=== PATIENT | male | born 1960 | race Hispanic/Latino ===

== ENCOUNTER 2021-01-12 06:02 | Inpatient (IN) | payer OTHER, SELFPAY ==
[2021-01-11 09:18] VITALS: BMI 31.3
[2021-01-12] MEDS ORDERED: Albumin 5% 500 ML ONE (06:41)
[2021-01-12] MEDS ORDERED: Midazolam HCl 2 mg/2 ml Vial ONE (07:13)
[2021-01-12] MEDS ORDERED: Sodium Bicarb 50 MEQ/50 ML Abboject 8.4% SYRINGE ONE (07:26)
[2021-01-12] MEDS ORDERED: PROPOFOL 200 MG/20 ML VIAL ONE (07:26)
[2021-01-12] MEDS ORDERED: Vecuronium 10 MG VIAL ONE (07:26)
[2021-01-12] MEDS ORDERED: Aminocaproic Acid 5 GM/20 ML VIAL ONE (07:26)
[2021-01-12] MEDS ORDERED: Heparin 30,000 units/30 ml VIAL ONE (07:26)
[2021-01-12] MEDS ORDERED: Papaverine 60 MG/2 ML VIAL ONE (07:26)
[2021-01-12] MEDS ORDERED: Lidocaine 2% PF 100 mg/5 ml Syringe ONE (07:26)
[2021-01-12] MEDS ORDERED: Rocuronium Bromide 10 MG/ML (10ML VIAL) ONE (07:26)
[2021-01-12] MEDS ORDERED: Midazolam HCl 5 mg/5 ml Vial ONE (07:34)
[2021-01-12] MEDS ORDERED: Fentanyl 250 MCG/5 ML VIAL ONE (07:34)
[2021-01-12] MEDS ORDERED: PHENYLEPHRINE-NS 100 MCG/ML 10 ML SYRINGE ONE (08:35)
[2021-01-12] MEDS ORDERED: Nitroglycerin 50 MG/250 ML BOT 250 ML ONE (11:01)
[2021-01-12] MEDS ORDERED: Morphine 4 MG/ML VIAL ONE (11:12)
[2021-01-12] MEDS: Lactated Ringer's 1,000 ML IV SCH (11:15)
[2021-01-12] MEDS ORDERED: HYDROcodone/Acetaminophen 5/325 mg Tablet PO PRN (11:24)
[2021-01-12] MEDS ORDERED: Guaifenesin DM 100-10/5 ML UDCUP PO PRN (11:24)
[2021-01-12] MEDS ORDERED: Bisacodyl 5 MG TAB PO PRN (11:24)
[2021-01-12] MEDS ORDERED: niCARdipine 25 MG in Sodium Chloride 0.9% 250 ML 250 ML IVPB PRN (11:24)
[2021-01-12] MEDS ORDERED: hydrALAZINE 20 MG/ML VIAL SLOW IVP PRN (11:24)
[2021-01-12] MEDS ORDERED: Ondansetron PF 4 MG/2 ML Vial IVP PRN (11:24)
[2021-01-12] MEDS ORDERED: Bisacodyl 10 MG SUPP PR PRN (11:24)
[2021-01-12] MEDS ORDERED: Morphine 2 MG/ML VIAL SLOW IVP PRN (11:24)
[2021-01-12] MEDS ORDERED: DOPamine 400 MG/D5W 250 ML 250 ML IVPB PRN (11:24)
[2021-01-12] MEDS ORDERED: Acetaminophen 325 MG TAB PO PRN (11:24)
[2021-01-12] MEDS ORDERED: Potassium Chloride 20 MEQ/100 ML PREMIX BAG IVPB PRN (11:24)
[2021-01-12] MEDS ORDERED: Nitroglycerin 50 MG/250 ML BOT 250 ML IVPB PRN (11:24)
[2021-01-12] MEDS ORDERED: Hetastarch 6% 500 ML 500 ML IVPB PRN (11:24)
[2021-01-12] MEDS ORDERED: Fentanyl 100 MCG/2 ML VIAL SLOW IVP PRN ×2 (11:24)
[2021-01-12] MEDS ORDERED: Post-Op Insulin Drip Protocol IVPB ONE (11:24)
[2021-01-12] MEDS ORDERED: Promethazine HCl 25 MG/ML VIAL IM PRN (11:24)
[2021-01-12] MEDS ORDERED: Norepinephrine 8 MG/0.9% NS 250 ML IVPB PRN (11:24)
[2021-01-12] MEDS ORDERED: Mag-Al 1200 mg/1200 mg/30 ML UDCUP PO PRN (11:24)
[2021-01-12 11:46] LABS: Hemoglobin 13.2 g/dL (14.0-18.0); Mean Corpuscular Hemoglobin 30.9 pg (27.0-31.0); Mean Corpuscular Volume 93.5 fL (78.0-98.0); Mean Platelet Volume 6.8 fL (7.4-10.4); Platelet Count 209 thou/uL (130-400); RBC Distribution Width 11.7 % (11.5-14.5); Red Blood Cell (RBC) Count 4.29 mill/uL (4.70-6.10); White Blood Cell (WBC) Count 24.1 thou/uL (4.8-10.8)
[2021-01-12 11:47] LABS: Actual Bicarbonate (HCO3a) 18.6 mEq/L (22-28); Base Excess (BEa) -6.5 mEq/L (-2.0 to +3.0); CO2 Tension 35.9 mmHg (35.0-45.0); Calcium, Ionized (arterial) 1.08 mmol/L (1.12-1.30); Carboxyhemoglobin (COHb) 0.6 gm% (0.0-3.0); Hemoglobin (Hb) 13.3 g/dL (14.0-18.0); O2 Tension (PaO2), arterial 84.9 mmHg (> 80.0); Potassium - ABG Lab 3.52 mmol/L (3.70-5.30); pH, Arterial 7.33 (7.35-7.45)
[2021-01-12 11:48] LABS: ALV-art Gradient 226.725 mmHg (0-20); Puncture Site Arterial Line
[2021-01-12 11:51] LABS: INR-International Normal Ratio 1.3
[2021-01-12 12:08] LABS: Band 20 % (5-11); Eosinophils 1 % (0-10); Lymphocytes 10 % (21-51); MDiff Complete? YES; Monocytes 4 % (0-10); Neutrophil 64 % (42-75); Platelet Morphology Comment Appears Adequate; RBC Morphology Normal; Reactive Lymphocytes 1 % (0-10)
[2021-01-12 12:13] LABS: Anion Gap 11 mmol/L (10-20); BUN (Urea Nitrogen) 12 mg/dL (8.4-25.7); Calc. Creatinine Clearance 109 mL/min (70-130); Carbon Dioxide 18 mmol/L (23-31); Chloride 112 mmol/L (98-107); Glucose 155 mg/dL (80-115); Potassium 4.4 mmol/L (3.5-5.1); Sodium 137 mmol/L (136-145)
[2021-01-12] MEDS: Ketorolac Tromethamine 30 MG/ML VIAL IVP SCH ×2 (12:15→18:51)
[2021-01-12] MEDS ORDERED: Dextrose 5% in Water 1,000 ML IV PRN (12:15)
[2021-01-12] MEDS ORDERED: Dextrose 50% Abboject 50 ML SYRINGE SLOW IVP PRN (12:15)
[2021-01-12] MEDS ORDERED: HUMULIN R 100 UNITS in Sodium Chloride 0.9% 100 ML IVPB SCH (12:15)
[2021-01-12] MEDS ORDERED: Insulin Regular 300 UNITS/3 ML VIAL SC PRN (12:15)
[2021-01-12 13:35] LABS: Actual Bicarbonate (HCO3a) 18.9 mEq/L (22-28); Base Excess (BEa) -5.3 mEq/L (-2.0 to +3.0); CO2 Tension 33.3 mmHg (35.0-45.0); Carboxyhemoglobin (COHb) 0.9 gm% (0.0-3.0); Hemoglobin (Hb) 14.4 g/dL (14.0-18.0); Potassium - ABG Lab 4.01 mmol/L (3.70-5.30); pH, Arterial 7.37 (7.35-7.45)
[2021-01-12 13:38] LABS: ALV-art Gradient 154.575 mmHg (0-20); Puncture Site LBA
[2021-01-12] MEDS: CEFAZOLIN 2 GM in Premix Bag 1 BAG IVPB SCH ×2 (14:30→22:26)
[2021-01-12 18:06] LABS: Potassium 4.4 mmol/L (3.5-5.1)
[2021-01-12] MEDS: HYDROcodone/Acetaminophen 5/325 mg Tablet PO PRN (20:04)
[2021-01-12] MEDS ORDERED: Famotidine/PF 20 mg/2ml Vial SLOW IVP SCH (21:00)
[2021-01-13] MEDS: Ketorolac Tromethamine 30 MG/ML VIAL IVP SCH ×4 (00:09→17:33)
[2021-01-13 04:54] LABS: #Lymphocytes 2.8 thou/uL (1.20-3.40); #Monocytes 1.3 thou/uL (0.11-0.59); #Neutrophils 12.2 thou/uL (1.40-6.50); %Basophils 0.2 % (0.0-1.0); %Eosinophils 0.1 % (0.0-10.0); %Monocytes 8.2 % (0.0-10.0); %Neutrophils 74.5 % (42.0-75.0); Hemoglobin 11.8 g/dL (14.0-18.0); Mean Corpuscular HGB CONC 33.1 g/dL (32.0-36.0); Mean Corpuscular Hemoglobin 31.1 pg (27.0-31.0); Mean Corpuscular Volume 93.8 fL (78.0-98.0); Mean Platelet Volume 7.1 fL (7.4-10.4); Platelet Count 215 thou/uL (130-400); RBC Distribution Width 11.8 % (11.5-14.5); Red Blood Cell (RBC) Count 3.81 mill/uL (4.70-6.10); White Blood Cell (WBC) Count 16.4 thou/uL (4.8-10.8)
[2021-01-13 05:13] LABS: Anion Gap 8 mmol/L (10-20); BUN (Urea Nitrogen) 15 mg/dL (8.4-25.7); Calc. Creatinine Clearance 105 mL/min (70-130); Calcium 7.9 mg/dL (7.8-10.44); Carbon Dioxide 26 mmol/L (23-31); Chloride 107 mmol/L (98-107); Glucose 113 mg/dL (80-115); Sodium 137 mmol/L (136-145)
[2021-01-13] MEDS: CEFAZOLIN 2 GM in Premix Bag 1 BAG IVPB SCH (05:23)
[2021-01-13] MEDS: HYDROcodone/Acetaminophen 5/325 mg Tablet PO PRN ×3 (05:24→16:15)
[2021-01-13] MEDS: Lactated Ringer's 1,000 ML IV SCH (06:16)
[2021-01-13] MEDS: Metoprolol Tartrate 25 MG TAB PO SCH ×4 (09:34→21:35)
[2021-01-13] MEDS: Aspirin 325 MG TAB PO SCH (09:34)
[2021-01-13] MEDS ORDERED: Guaifenesin DM 100-10/5 ML UDCUP PO PRN (09:36)
[2021-01-13] MEDS ORDERED: Zolpidem Tartrate 5 MG TAB PO PRN (09:36)
[2021-01-13] MEDS ORDERED: diphenhydrAMINE 25 MG CAP PO PRN (09:36)
[2021-01-13] MEDS ORDERED: Mineral Oil ENEMA PR PRN (09:36)
[2021-01-13] MEDS ORDERED: Nitroglycerin 0.4 MG TAB (25 Tab Bottle) SL PRN (09:36)
[2021-01-13] MEDS ORDERED: Furosemide 40 MG/4 ML VIAL ONE (12:13)
[2021-01-13] MEDS ORDERED: Furosemide 20 MG TAB PO SCH (12:45)
[2021-01-13] MEDS: Aspirin 325 mg Enteric Coated Tablet PO SCH (13:35)
[2021-01-13] MEDS: Atorvastatin Calcium 40 MG TAB PO SCH (21:35)
[2021-01-14] MEDS: Ketorolac Tromethamine 30 MG/ML VIAL IVP SCH ×5 (00:19→23:43)
[2021-01-14] MEDS: Aspirin 325 MG TAB PO SCH (09:21)
[2021-01-14] MEDS: Aspirin 325 mg Enteric Coated Tablet PO SCH (09:21)
[2021-01-14] MEDS: Metoprolol Tartrate 25 MG TAB PO SCH ×4 (09:21→23:50)
[2021-01-14] MEDS: Potassium Chloride 10 MEQ TAB PO SCH (09:22)
[2021-01-14] MEDS: Furosemide 20 MG TAB PO SCH (09:23)
[2021-01-14] MEDS: HYDROcodone/Acetaminophen 5/325 mg Tablet PO PRN (16:54)
[2021-01-14] MEDS: Atorvastatin Calcium 40 MG TAB PO SCH (21:13)
[2021-01-15] MEDS: Ketorolac Tromethamine 30 MG/ML VIAL IVP SCH (05:42)
[2021-01-15] MEDS: Metoprolol Tartrate 25 MG TAB PO SCH ×2 (09:12→09:13)
[2021-01-15] MEDS: Aspirin 325 mg Enteric Coated Tablet PO SCH (09:12)
[2021-01-15] MEDS: Aspirin 325 MG TAB PO SCH (09:12)
[2021-01-15] MEDS: Furosemide 20 MG TAB PO SCH (09:13)
[2021-01-15] MEDS: HYDROcodone/Acetaminophen 5/325 mg Tablet PO PRN (09:13)
[2021-01-15] MEDS: Potassium Chloride 10 MEQ TAB PO SCH (09:13)
[2021-01-15 09:29] VITALS: TEMP 97.8
[2021-01-15 09:46] VITALS: BP 140/65
[2021-01-23 14:15] LABS: Actual Bicarbonate (HCO3a) 19.3 mEq/L (22-28); Analyzer IN Cardio OR; Base Excess (BEa) -4.6 mEq/L (-2.0 to +3.0); CO2 Tension 31.8 mmHg (35.0-45.0); Calcium, Ionized (arterial) 1.03 mmol/L (1.12-1.30); Carboxyhemoglobin (COHb) 0.1 gm% (0.0-3.0); Hemoglobin (Hb) 11.7 g/dL (14.0-18.0); O2 Tension (PaO2), arterial 126.7 mmHg (> 80.0); Potassium - ABG Lab 3.47 mmol/L (3.70-5.30)
[2021-01-23 14:15] LABS: Actual Bicarbonate (HCO3a) 20.6 mEq/L (22-28); Analyzer IN Cardio OR; Base Excess (BEa) -3.7 mEq/L (-2.0 to +3.0); CO2 Tension 34.2 mmHg (35.0-45.0); Calcium, Ionized (arterial) 1.18 mmol/L (1.12-1.30); Carboxyhemoglobin (COHb) 0.3 gm% (0.0-3.0); Hemoglobin (Hb) 9.5 g/dL (14.0-18.0); O2 Tension (PaO2), arterial 76.7 mmHg (> 80.0); Potassium - ABG Lab 4.17 mmol/L (3.70-5.30)
[2021-01-23 14:16] LABS: Actual Bicarbonate (HCO3a) 22.8 mEq/L (22-28); Analyzer IN Cardio OR; Base Excess (BEa) -1.7 mEq/L (-2.0 to +3.0); CO2 Tension 37.6 mmHg (35.0-45.0); Calcium, Ionized (arterial) 0.95 mmol/L (1.12-1.30); Carboxyhemoglobin (COHb) 0.3 gm% (0.0-3.0); Hemoglobin (Hb) 8.7 g/dL (14.0-18.0); O2 Tension (PaO2), arterial 365.4 mmHg (> 80.0); Potassium - ABG Lab 4.68 mmol/L (3.70-5.30)
[2021-01-23 14:17] LABS: Actual Bicarbonate (HCO3a) 23.3 mEq/L (22-28); Analyzer IN Cardio OR; Base Excess (BEa) -1.2 mEq/L (-2.0 to +3.0); CO2 Tension 38.2 mmHg (35.0-45.0); Calcium, Ionized (arterial) 0.94 mmol/L (1.12-1.30); Carboxyhemoglobin (COHb) 0.2 gm% (0.0-3.0); Hemoglobin (Hb) 10.2 g/dL (14.0-18.0); Potassium - ABG Lab 4.29 mmol/L (3.70-5.30)
[2021-01-23 14:17] LABS: Actual Bicarbonate (HCO3a) 22.2 mEq/L (22-28); Analyzer IN Cardio OR; Calcium, Ionized (arterial) 1.11 mmol/L (1.12-1.30); Carboxyhemoglobin (COHb) 0.3 gm% (0.0-3.0); O2 Tension (PaO2), arterial 309.1 mmHg (> 80.0); Potassium - ABG Lab 4.34 mmol/L (3.70-5.30); pH, Arterial 7.36 (7.35-7.45)
[2021-01-23 14:22] LABS: Actual Bicarbonate (HCO3a) 20.9 mEq/L (22-28); Analyzer IN Cardio OR; Base Excess (BEa) -3.8 mEq/L (-2.0 to +3.0); CO2 Tension 36.9 mmHg (35.0-45.0); Calcium, Ionized (arterial) 1.05 mmol/L (1.12-1.30); Carboxyhemoglobin (COHb) 0.4 gm% (0.0-3.0); Hemoglobin (Hb) 12.6 g/dL (14.0-18.0); pH, Arterial 7.37 (7.35-7.45)
[2021-01-23 14:37] LABS: Puncture Site Arterial Line
[2021-01-23 14:38] LABS: Puncture Site Arterial Line
[2021-01-23 14:38] LABS: Puncture Site Arterial Line
[2021-01-23 14:39] LABS: Puncture Site Arterial Line
[2021-01-23 14:39] LABS: Puncture Site Arterial Line
[2021-01-23 14:40] LABS: Puncture Site Arterial Line
== END 2021-01-15 10:07 | disposition home or self-care (01) | DRG 236 ==
LOC: SURG A 06:02 → CCU 10:53 → EDSTATUS 11:23 → 2NO 01-13 14:04
PROVIDERS: ADMIT Thoracic Surgery (Cardiothoracic Vascular Surgery); ATTEND Thoracic Surgery (Cardiothoracic Vascular Surgery)
PROC: 02100Z9 Bypass Coronary Artery, One Artery from Left Internal Mammary, Open Approach (ICD-10-PCS; principal; 2021-01-12)
PROC: 021209W Bypass Coronary Artery, Three Arteries from Aorta with Autologous Venous Tissue, Open Approach (ICD-10-PCS; 2021-01-12)
PROC: 06BQ4ZZ Excision of Left Saphenous Vein, Percutaneous Endoscopic Approach (ICD-10-PCS; 2021-01-12)
PROC: 5A1221Z Performance of Cardiac Output, Continuous (ICD-10-PCS; 2021-01-12)
DX: I25.111 Atherosclerotic heart disease of native coronary artery with angina pectoris with documented spasm (principal); Z20.822 Contact with and (suspected) exposure to COVID-19; E78.00 Pure hypercholesterolemia, unspecified; E78.5 Hyperlipidemia, unspecified; G43.909 Migraine, unspecified, not intractable, without status migrainosus; E11.9 Type 2 diabetes mellitus without complications; I10 Essential (primary) hypertension; Z79.899 Other long term (current) drug therapy; Z87.891 Personal history of nicotine dependence; Z79.82 Long term (current) use of aspirin
CPT/HCPCS: 36415; 36416; 36430; 36600; 71045; 80048; 82805; 82947; 85025; 85610; 85730; 86850; 86900; 86901; 93005; 93010; 93798; 94002; 94150; J0690; J1642; J1644; J1815; J1885; J2001; J2250; J2270; J2405; J2440; J2704; J3010; J3370; J3480; J3490; P9045; S0017; S0028